=== PATIENT | female | born 1935 | race Caucasian/White ===

== ENCOUNTER → 2017-01-07 | Outpatient (CLI) | payer MEDICARE, SELFPAY | LOC: CT 01-01 14:00 | DX: H61.23 Impacted cerumen, bilateral (principal); R51 Headache | CPT/HCPCS: 36415; 70470; 82565; 84520; J7050; Q9966 ==

== ENCOUNTER → 2017-03-20 | Outpatient (CLI) | payer MEDICARE, SELFPAY | LOC: US 09:54 | DX: K74.60 Unspecified cirrhosis of liver (principal); R16.0 Hepatomegaly, not elsewhere classified; Z90.49 Acquired absence of other specified parts of digestive tract | CPT/HCPCS: 76705 ==

== ENCOUNTER → 2021-01-09 | Outpatient (CLI) | payer MEDICARE, SELFPAY ==
[~2021-01-09] MED LIST: ALDACTONE 25MG25 MG PO; BUMETANIDE0.5 MG PO; BUMETANIDE2 MG PO; CENTRUM COMPLE1 EACH PO; CHRONULAC20 GM/30 M PO; CLEOCIN HCL300 MG PO; DOCUSATE SODIU100 MG PO; ELIQUIS 2.5 MG2.5 MG PO; ELIQUIS2.5 MG PO; FISH OIL 1,0001 EACH PO; FISH OIL CONCE1 EAC1 PO; FOLIC-K CAPSUL1 EACH PO; FUROSEMIDE40 MG PO; GARLIC1 EAC1 PO; GLIPIZIDE XL2.5 MG PO; GLUCOTROL XL 22.5 MG PO; GLUCOTROL XL2.5 MG PO; HYDROXYZINE HCL25 MG PO; ISOSORBIDE MONO30 MG PO; K-DUR TAB 10 M10 MEQ PO; KEFLEX500 MG PO; KLOR-CON 1010 MEQ PO; LASIX40 MG PO; LEVAQUIN500 MG PO; LEVOTHYROXINE50 MC1 PO; LEVOXYL25 MCG PO; LIPITOR TAB 1010 MG PO; LOPRESSOR 25 MG25 MG PO; LUMIGAN 0.01%2.5 ML EYEBOTH; METOPROLOL SUCC25 MG PO; METOPROLOL TART25 MG PO; MIDODRINE HCL2.5 MG PO; MILK THISTLE140 M1 PO; MULTAQ 400 MG400 MG PO; MULTAQ400 MG PO; MULTIVITAMINS1 EAC1 PO; NEURONTIN 100100 MG PO; NITROSTAT 0.40.4 MG SL; ODOR FREE GARL1 EAC1 PO; OMEGA 3 1,0001 EACH PO; SYNTHROID25 MCG PO; TYLENOL W/CODEIN1 E1 PO; VANCOMYCIN HCL125 MG PO; VITAMIN D325 MCG PO
== END ==
LOC: KOH-I 09:43
DX: G45.0 Vertebro-basilar artery syndrome (principal); K74.60 Unspecified cirrhosis of liver
CPT/HCPCS: 70450; 76705

== ENCOUNTER → 2021-03-08 | Outpatient (CLI) | payer MEDICARE, SELFPAY | LOC: HEART 5 09:58 | DX: R06.02 Shortness of breath (principal) | CPT/HCPCS: 71046; 94010 ==

== ENCOUNTER 2021-04-12 22:07 | Inpatient (IN) | payer MEDICARE ==
[~2021-04-12] VITALS: Ht 152.4 cm; Wt 113.4 kg
[~2021-04-12 22:07] MED LIST changes: -ALDACTONE 25MG25 MG PO; -BUMETANIDE0.5 MG PO; -CHRONULAC20 GM/30 M PO; -DOCUSATE SODIU100 MG PO; -FUROSEMIDE40 MG PO; -GLUCOTROL XL2.5 MG PO; -HYDROXYZINE HCL25 MG PO; -LEVOTHYROXINE50 MC1 PO; -LIPITOR TAB 1010 MG PO; -METOPROLOL TART25 MG PO; -MIDODRINE HCL2.5 MG PO; -MULTAQ 400 MG400 MG PO; -NEURONTIN 100100 MG PO; -VITAMIN D325 MCG PO
[2021-04-13] MEDS ORDERED: BUMETANIDE0.5 MG PO ×2 (03:47→03:54)
[2021-04-13] MEDS ORDERED: ELIQUIS2.5 MG PO (03:55)
[2021-04-13] MEDS ORDERED: NEURONTIN 100100 MG PO (03:56)
[2021-04-13] MEDS ORDERED: GLUCOTROL XL2.5 MG PO (03:56)
[2021-04-13] MEDS ORDERED: LEVOTHYROXINE50 MC1 PO (03:57)
[2021-04-13] MEDS ORDERED: HYDROXYZINE HCL25 MG PO (03:57)
[2021-04-13] MEDS ORDERED: ISOSORBIDE MONO30 MG PO (03:57)
[2021-04-13] MEDS ORDERED: VITAMIN D325 MCG PO (03:58)
[2021-04-13] MEDS ORDERED: LIPITOR TAB 1010 MG PO (03:58)
[2021-04-13] MEDS ORDERED: MULTAQ 400 MG400 MG PO (03:59)
[2021-04-13] MEDS ORDERED: METOPROLOL TART25 MG PO (03:59)
[2021-04-13] MEDS ORDERED: K-DUR TAB 10 M10 MEQ PO (04:00)
[2021-04-13 15:59] LABS: HEMOGLOBIN 9.3 gm/dl (12.3-15.3); RED BLOOD COUNT 2.89 M/UL (4.00-5.10); WHITE BLOOD COUNT 5.8 K/UL (4.5-11.0)
[2021-04-14 03:16] LABS: HEMOGLOBIN 9.3 gm/dl (12.3-15.3); RED BLOOD COUNT 2.86 M/UL (4.00-5.10); WHITE BLOOD COUNT 6.2 K/UL (4.5-11.0)
[2021-04-15 03:41] LABS: HEMOGLOBIN 8.3 gm/dl (12.3-15.3); RED BLOOD COUNT 2.54 M/UL (4.00-5.10); WHITE BLOOD COUNT 6.7 K/UL (4.5-11.0)
[2021-04-16 04:49] LABS: RED BLOOD COUNT 2.51 M/UL (4.00-5.10); WHITE BLOOD COUNT 6.7 K/UL (4.5-11.0)
[2021-04-17 03:18] LABS: HEMOGLOBIN 7.9 gm/dl (12.3-15.3); RED BLOOD COUNT 2.48 M/UL (4.00-5.10); WHITE BLOOD COUNT 6.7 K/UL (4.5-11.0)
[2021-04-18 03:12] LABS: HEMOGLOBIN 7.8 gm/dl (12.3-15.3); RED BLOOD COUNT 2.43 M/UL (4.00-5.10); WHITE BLOOD COUNT 6.6 K/UL (4.5-11.0)
[2021-04-19 03:20] LABS: HEMOGLOBIN 8.1 gm/dl (12.3-15.3); RED BLOOD COUNT 2.48 M/UL (4.00-5.10); WHITE BLOOD COUNT 7.9 K/UL (4.5-11.0)
[2021-04-23] MEDS ORDERED: ALDACTONE 25MG25 MG PO (16:35)
[2021-04-23] MEDS ORDERED: LOPRESSOR 25 MG25 MG PO (16:35)
[2021-04-23] MEDS ORDERED: CHRONULAC20 GM/30 M PO (16:35)
[2021-04-23] MEDS ORDERED: DOCUSATE SODIU100 MG PO (16:35)
[2021-04-23] MEDS ORDERED: FUROSEMIDE40 MG PO (16:35)
[2021-04-23] MEDS ORDERED: MIDODRINE HCL2.5 MG PO (16:35)
--- NOTE | 2021-04-23 18:53 | NUR ---
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
== END 2021-04-23 18:57 | DRG 441 ==
LOC: M/S 22:07
PROVIDERS: Family Medicine; Hospitalist; Internal Medicine; Internal Medicine Nephrology; ADMIT Internal Medicine
DX: K75.81 Nonalcoholic steatohepatitis (NASH) (principal); J96.01 Acute respiratory failure with hypoxia; K76.7 Hepatorenal syndrome; I50.33 Acute on chronic diastolic (congestive) heart failure; N18.4 Chronic kidney disease, stage 4 (severe); D68.4 Acquired coagulation factor deficiency; R18.8 Other ascites; N17.9 Acute kidney failure, unspecified; R00.1 Bradycardia, unspecified; I13.0 Hypertensive heart and chronic kidney disease with heart failure and stage 1 through stage 4 chronic kidney disease, or unspecified chronic kidney disease; Z68.42 Body mass index [BMI] 45.0-49.9, adult; I27.20 Pulmonary hypertension, unspecified; R53.81 Other malaise; D53.9 Nutritional anemia, unspecified; K72.90 Hepatic failure, unspecified without coma; K74.69 Other cirrhosis of liver; I08.3 Combined rheumatic disorders of mitral, aortic and tricuspid valves; E03.9 Hypothyroidism, unspecified; E11.22 Type 2 diabetes mellitus with diabetic chronic kidney disease; D69.6 Thrombocytopenia, unspecified; I48.91 Unspecified atrial fibrillation; E87.70 Fluid overload, unspecified; E66.01 Morbid (severe) obesity due to excess calories; T50.995A Adverse effect of other drugs, medicaments and biological substances, initial encounter; I48.0 Paroxysmal atrial fibrillation; I49.5 Sick sinus syndrome; Z95.0 Presence of cardiac pacemaker; Z91.81 History of falling; Z90.49 Acquired absence of other specified parts of digestive tract; Z79.899 Other long term (current) drug therapy; Z79.01 Long term (current) use of anticoagulants; Z90.710 Acquired absence of both cervix and uterus
CPT/HCPCS: ECHO; 36415; 71045; 71100; 73030; 76700; 80048; 80053; 81001; 82570; 82728; 82962; 83540; 83550; 83735; 84133; 84156; 84300; 84439; 84443; 85025; 85027; 85610; 93005; 93306; 97110; 97110-GP-CQ; 97116; 97116-GP-CQ; 97161; 97166; 97530; 97530-GP-CQ; 97535; J1940; J2354; J2405; J2550; P9047